=== PATIENT | female | born 1995 | race Caucasian/White ===

== ENCOUNTER 2018-02-11 15:42 | Inpatient (IN) ==
[2018-02-11] MEDS ORDERED: Ringers Solution, Lactated 1,000 ML IVC SCH ×2 (16:15→21:26)
[2018-02-11] MEDS ORDERED: Oxytocin 20 units/ LR 1000 mL 20 UNIT/1,000 ML BAG IVC ONE (16:15)
[2018-02-11] MEDS ORDERED: CeFAZolin Premix DUPLEX 2,000 MG/50 ML BAG IVPB ONE (16:15)
[2018-02-11] MEDS ORDERED: Oxytocin 20 units/ LR 1000 mL 20 UNIT/1,000 ML BAG IVC SCH ×3 (16:15→21:26)
[2018-02-11] MEDS ORDERED: Famotidine 20 MG/2 ML VIAL IVP ONE (16:15)
[2018-02-11] MEDS ORDERED: Metoclopramide 10 MG/2 ML VIAL IVP ONE (16:15)
--- NOTE | 2018-02-11 16:36 | OB/GYN History & Physical ---
Date of Encounter: 02/11/18 Time of Encounter: 16:32 Assessment and Plan (1) and not yet delivered in third trimester Current visit: Yes Status: Acute (2) 37 weeks gestation of Current visit: Yes Status: Acute (3) Intrauterine growth restriction (IUGR) affecting care of mother, third trimester, single gestation Current visit: Yes Status: Acute (4) Ladarius breech presentation Current visit: Yes Status: Acute will prep for primary section Qualifiers: Fetus number: single or unspecified fetus Qualified Code(s): O32.1XX0 - Maternal care for breech presentation, not applicable or unspecified (5) Active labor at term Current visit: Yes Status: Acute History of Present Illness HPI: Ms. Taylor is a 22 year old female 2 para 1 at 37-0/7 weeks by last menstrual period equal to an 8-5/7 week ultrasound who was sent over from the office for primary section. Patient's had an ultrasound last week which placed the baby at the 4.7 percentile for growth and Dopplers were 95th percentile. Her biophysical profile was 8 out of 8 we did a NST at the end of last week which was reactive. She presented today for a biophysical biophysical was 8 out of 8 Dopplers was still 95th percentile and BETHANY was still stable at 17 cm. Patient states that she has been having contractions all night and we examined the patient was 4 cm 90% -2 with bulging membranes and she is ladarius breech. Because of her situation advanced cervical dilatation and labor she was sent to labor and delivery for evaluation and section. Patient was 1-2 cm one week ago. She states that she had a little bit of leaking last night but has not had anything today and fluid was normal on ultrasound. Patient is GBS negative, rubella positive, Varicella positive, O+ Past Med Surg Social Fam HX - Past Medical History Source: patient, old records reviewed Medical history: no medical history Psychiatric history: no psych history - Past Surgical History Surgical History: no surgical history - Social History Smoking Status: Current every day smoker Smokeless Tobacco Status: No Alcohol use: none Drug use: none Occupational status: unemployed Current living situation: Home - Independent Activity Level: Independent ambulation Recent Out of Country Travel Within the Last 8 Weeks: No Exposure or Possible Exposure to Illness During Travel: No - Additional Family History Additional family history: Family history noncontributory Obstetrical History - Pregnancies : 2 Para: 1 Livin Medications and Allergies Ciprofloxacin HCl [Cipro] 500 mg PO BID #20 tablet 09/03/15 [Rx] Ibuprofen [Motrin] 800 mg PO Q8HR #30 tablet 09/03/15 [Rx] Ondansetron HCl [Zofran] 4 mg PO 2-3XD PRN #14 tablet 09/03/15 [Rx] OxyCODONE/APAP 5/325 [Percocet 5/325 MG] 1 each PO Q4HR PRN #15 tablet 09/03/15 [Rx] Tamsulosin [Flomax] 0.4 mg PO DAILY #7 capsule 09/03/15 [Rx] Vitamin D 09/03/15 [History] Allergy/AdvReac Type Severity Reaction Status Date / Time doxycycline Allergy Vomiting Verified 09/03/15 10:00 Review of System OB All systems PM: reviewed and no additional remarkable complaints except as stated - Menstruation Menstruation: other (contractions every 3-5 min) Exam - Constitutional Constitutional: well developed, well nourished, mild distress - HEENT HEENT: EOMI, PERRL, Mucus Membranes Moist - Neck Neck exam: full ROM - Lungs Respiratory exam: CTAB - Cardiovascular Cardiovascular exam: JVD, RRR - Abdomen Abdomen: Present: bowel sounds normal, gravid (Heart tones 140s reactive occasional contractions noted), bowel sounds hyperactive - Vagina Vagina: Present: normal moisture - Cervix Dilation: 4 Effacement: 90 Station: -2 (buldging membranes) Results All other labs normal.
--- NOTE | 2018-02-11 17:06 | Anesthesia Evaluation PreOp ---
Date of Encounter: 02/11/18 Time of Encounter: 17:00 - Past History Planned Operation: Cardiac History: Denies any Significant Hx Pulmonary History: Smoker CELLOPHANE WRAPPING EXAMINER History: Denies Any Significant HX Other Medical History: Denies Any Significant HX Anesthesia History: No Prior Anesthetic Complications : Yes (37 weeks ) Alcohol Use: none Drug use: none Medications and Allergies Ciprofloxacin HCl [Cipro] 500 mg PO BID #20 tablet 09/03/15 [Rx] Ibuprofen [Motrin] 800 mg PO Q8HR #30 tablet 09/03/15 [Rx] Ondansetron HCl [Zofran] 4 mg PO 2-3XD PRN #14 tablet 09/03/15 [Rx] OxyCODONE/APAP 5/325 [Percocet 5/325 MG] 1 each PO Q4HR PRN #15 tablet 09/03/15 [Rx] Tamsulosin [Flomax] 0.4 mg PO DAILY #7 capsule 09/03/15 [Rx] Vitamin D 09/03/15 [History] Allergy/AdvReac Type Severity Reaction Status Date / Time doxycycline Allergy Vomiting Verified 09/03/15 10:00 - Meds/Allergy Pre-op Review Medications Reviewed: Yes Allergies Reviewed: Yes Beta Blockers on Current Med List: No Anesthesia Results - Labs Laboratory Tests 08/09/16 12/11/17 12:39 12:18 Hgb 10.7 L Hct 32.0 L Plt Count 150 Sodium 138 Potassium 4.1 BUN 8 Creatinine 0.72 Anesthesia Exam O2 Sat Height 38.47 m Weight 57.2 kg Height: 5'5 Weight: 126 lbs NPO (# of Hours): 1000 Pain Scale: 0 - HEENT Pupil (Motor): Pupils equal, EOMI Mallampati: II Teeth: Normal Oral Opening: Greater than 3 - CELLOPHANE WRAPPING EXAMINER LOC: Oriented CELLOPHANE WRAPPING EXAMINER Motor: Normal RUE, Normal LUE, Normal RLE, Normal LLE, Normal Face CELLOPHANE WRAPPING EXAMINER Sensory: Normal: RUE, LUE, RLE, LLE, Face - Cardiac Rhythm: Regular Murmur: None JVD: No Carotid Bruit: No - Pulmonary Breath Sounds: bilateral Clear Respiratory Effort: Symmetrical Anesthesia Assess/Plan ASA Score: 2 Level of consciousness: Cooperative Anesthetic Plan: Spinal Autologous Blood: No Monitoring Plan: Standard Monitors Recovery Plan: PACU (Discussed SAB, possible GA, agrees to proceed)
[2018-02-11] MEDS ORDERED: *HR* Morphine Sulfate/PF 10 MG/10 ML AMPUL ONE (17:07)
[2018-02-11] MEDS ORDERED: *HR* FentaNYL (PF) 100 MCG/2 ML VIAL ONE (17:07)
[2018-02-11] MEDS ORDERED: Lidocaine -MPF 2% 5 ML VIAL ONE (17:07)
[2018-02-11] MEDS ORDERED: *HR* Oxytocin 10 UNIT/ML VIAL IM ONE (17:12)
[2018-02-11 17:14] LABS: Basophils # 0.1 K/mcL (0.0-0.2); Basophils % 0.4 %; Eosinophils # 0.2 K/mcL (0.0-0.6); Eosinophils % 1.3 %; Hematocrit 34.3 % (35.3-44.9); Hemoglobin 11.6 g/dL (11.5-15.4); Immature Granulocytes % 1.7 % (0-4); Lymphocytes # 2.4 K/mcL (0.6-4.6); Mean Corpuscular HGB Conc 33.8 g/dL (31.6-35.5); Mean Corpuscular Hemoglobin 30.5 pg (28.0-33.3); Mean Corpuscular Volume 90.3 fL (83.0-100.0); Mean Platelet Volume 10.6 fL (9.4-12.4); Monocytes # 1.3 K/mcL (0.0-1.3); Monocytes % 8.2 %; Neutrophils # 11.6 K/mcL (1.6-8.9); Platelet Count 148 K/mcL (140-400); Red Cell Distribution Width 13.5 % (11.5-14.5); Segmented Neutrophils % 73.4 %
[2018-02-11] MEDS ORDERED: Bupivacaine/PF 0.75% in Dex 2 ML AMPUL INFILT ONE (17:15)
[2018-02-11] MEDS ORDERED: Ringers Solution, Lactated 1,000 ML ONE (17:15)
[2018-02-11 17:30] LABS: Amphetamine Screen,Urine Negative ng/mL (Cutoff=1000); Barbiturate Screen,Urine Negative ng/mL (Cutoff=200); Benzodiazepines Screen,Urine Negative ng/mL (Cutoff=200); Cannabinoid Screen,Urine Negative ng/mL (Cutoff = 50); Cocaine Screen,Urine Negative ng/mL (Cutoff= 300); Opiate Screen,Urine Negative ng/mL (Cutoff=300); Phencyclidine Screen,Urine Negative ng/mL (Cutoff=25)
--- NOTE | 2018-02-11 18:25 | Anesthesia Procedures ---
Date of Encounter: 02/11/18 Time of Encounter: 18:03 Procedures: Anesthesia - Epidural/Spinal Patient ID/Chart reviewed: Yes Patient examined: Yes OB Eval: Gestational age: 36 weeks 5 days OB Eval: : 2 OB Eval: Hx Para: 1 OB Eval: Contractions: Non-stressed pattern Consent Obtained: Yes Supplemental Oxygen: None/Room Air Site Prep: Aseptic Technique, Sterile prep and drape, Povidone-Iodine 1% Patient position: upright Local Anesthetic: Lidocaine 1% Amount of Local Anesthetic used: 3 Interspace Used: L3-L4 Loss of Resistance (LEANNE): No Blood: No CSF: Yes Paresthesia: No Spinal Needle Gauge: 25 (3.5" pencan needle) Spinal Dose: see anesthesia record Procedure: successful on 1st attempt; patient tolerated procedure well; VSS Vitals + FHT's: see anesthesia record
[2018-02-11] MEDS ORDERED: *HR* Promethazine 25 MG/ML VIAL IVP PRN (18:27)
[2018-02-11] MEDS ORDERED: Naloxone 0.4 MG/ML INJ IVP PRN ×2 (18:27→21:26)
[2018-02-11] MEDS ORDERED: Ondansetron 4 MG/2 ML VIAL IVP PRN ×2 (18:27→21:26)
[2018-02-11] MEDS ORDERED: Acetaminophen IV 1,000 MG/100 ML INFUS..BTL IVPB ONE (18:27)
--- NOTE | 2018-02-11 19:13 | OB/GYN Procedure Note ---
Section - Date of procedure: 02/11/18 Preop diagnosis: other ( at 37-0/7 weeks, bob breech presentation, intrauterine growth restriction, active labor) Post-op diagnosis: same Procedure: primary low transverse Surgeon: Parish Almanzar Quantitated Blood Loss: 400 Was there an metal moulder's assistant present: Yes Lead Project Engineer: Keiry Paz ([email or web address]) Anesthesiologist: Neo Evans Registered Nurse Teacher: Jose Savage Anesthesia Type: Spinal section complications: none Disposition: L&D Recovery Room Specimens: Placenta - (s) A Delivery Date: 02/11/18 Delivery Time: 19:14 Presentation: bob breech Route of delivery: other ( section) Gender: Female Viability: Viable Pounds: 5 Ounces: 5 Gram Weight: 2.41 kg at 1 minute: 9 at 5 minutes: 9 Shoulder Dystocia: not encountered Specimens collected: cord blood Placenta: spontaneous Cord: nuchal cord, 3 umbilical vessels - Narrative Narrative: Patient is a 22-year-old 2 para 1 at 37 0 since weeks who was sent from the office secondary to active labor and breech presentation. Patient was seen in the office with ultrasound due to IUGR patient had an ultrasound last week which placed the baby at the 4.7 percentile for growth and Dopplers were normal. Been doing NSTs wanted to repeat his scan today patient's ultrasound today shows normal Dopplers and biophysical 8 out of 8 however patient states been francesco all night and she was examined she was a good 4 cm 80% -2 bulging membranes patient is bob breech. Patient was 1 cm last week due to cervical change and francesco every 2 minutes she was sent to labor and delivery for primary section for malpresentation. Procedure: Patient was taken the operating room where spinal anesthesia was found be adequate. She was in the dorsal supine position with leftward tilt prepped and draped in usual fashion. Timeout was then obtained. A Pfannenstiel incision was made with a scalpel and carried out the underlying tissue to the fascia was identified. Fascia was nicked in midline and extended laterally with the Keating scissors. The superior and inferior edges of the fascia grasped tented up and dissected off the rectus muscles. Rectus muscles were in the midline parietal peritoneum was identified and entered sharply. This was ext ended superiorly and inferiorly with Metzenbaum scissors. Bladder blade was inserted the vesicouterine peritoneum was identified tented up and entered sharply. Bladder blade was inserted the vesicouterine peritoneum was identified tented up and entered sharply. This was extended laterally bladder flap created digitally. The lower uterine segment was incised with a scalpel and extended laterally with digital manipulation. Membranes were ruptured clear fluid noted and the was then delivered in a bob breech presentation on scissors across the chest and the head was delivered through was a nuchal cord 1 loose and reduced. Cord was clamped and cut was bulb suctioned and handed off to waiting pediatric team. Cord blood was collected and placenta was then delivered spontaneously with a three-vessel cord. Uterus was exteriorized cleared of all clots and debris. The lower uterine segment was closed using 0 Vicryl in a running locking stitch paratubular closure. Good hemostasis was noted os to normal. Uterus was returned to the abdomen and gutters were cleansed of all clots and debris then copiously irrigated. No active bleeding at this time. The fascia was then closed using a #1 stratafix in a running stitch and then the skin was closed using a 4-0 Vicryl in subcuticular manner. All needles lap Sponge Counts Were Correct 3 She Did Receive Preoperative Ant ibiotics She Will Be Observed 2 Hours before Being Taken Floor.
--- NOTE | 2018-02-11 19:14 | Anesthesia Evaluation Post Op ---
Date of Encounter: 02/11/18 Time of Encounter: 19:12 - Vital Signs Vital Signs: 98/56, HR 64, RR 16, SpO2 100%, T97.7F - Lungs Lungs: Clear Ascult./Percussion - Airway Airway: Non-obstructed - Cardiovascular Regular Rate - Mental Status Mental Status: Alert & Oriented, Answers Appropriately - Pain Pain Scale: 0 Pain Scale used: Numeric (1 - 10) - Nausea Vomiting Nausea Vomiting: Not Present - Hydration Hydration: NPO, Pineda catheter - Discharge PostOp Status: Transfer Patient to floor
[2018-02-11] MEDS ORDERED: Simethicone 80 MG TAB.CHEW PO PRN (21:26)
[2018-02-11] MEDS ORDERED: Metoclopramide 10 MG/2 ML VIAL IVP PRN (21:26)
[2018-02-11] MEDS ORDERED: *HR* HYDROmorphone (PF) 1 MG/ML SYRINGE IVP PRN (21:26)
[2018-02-11] MEDS ORDERED: Sennosides 8.6 MG TABLET PO PRN (21:26)
[2018-02-11] MEDS ORDERED: Azithromycin 250 MG TABLET PO SCH (21:26)
[2018-02-11] MEDS: Ibuprofen 600 MG TABLET PO PRN (23:10)
[2018-02-12] MEDS: *HR* OxyCODONE/APAP 5/325 TABLET PO PRN ×3 (05:36→21:25)
[2018-02-12 07:00] LABS: Basophils # 0.1 K/mcL (0.0-0.2); Basophils % 0.4 %; Eosinophils # 0.2 K/mcL (0.0-0.6); Eosinophils % 1.2 %; Hematocrit 31.6 % (35.3-44.9); Hemoglobin 10.5 g/dL (11.5-15.4); Lymphocytes # 3.3 K/mcL (0.6-4.6); Lymphocytes % 18.5 %; Mean Corpuscular HGB Conc 33.2 g/dL (31.6-35.5); Mean Corpuscular Hemoglobin 29.6 pg (28.0-33.3); Mean Platelet Volume 10.5 fL (9.4-12.4); Monocytes # 1.6 K/mcL (0.0-1.3); Monocytes % 9.2 %; Neutrophils # 12.3 K/mcL (1.6-8.9); Platelet Count 124 K/mcL (140-400); Red Blood Count 3.55 M/mcL (3.82-4.97); Red Cell Distribution Width 13.2 % (11.5-14.5); Segmented Neutrophils % 69.7 %
[2018-02-12] MEDS: Prenatal Vit/FA 1 EACH TABLET PO SCH (07:18)
[2018-02-12] MEDS: Ibuprofen 600 MG TABLET PO PRN ×3 (07:18→21:24)
--- NOTE | 2018-02-12 11:26 | OB/GYN Progress Note ---
Date of Encounter: 02/12/18 Time of Encounter: 11:25 - Assessment and Plan (1) Status post delivery Current Visit: Yes Status: Acute Patient doing well status post section day 1. Tolerating regular diet, voiding without difficulty. Passing flatus, pain well-controlled with scheduled medications. (2) Breast feeding status of mother Current Visit: Yes Status: Acute support as necessary Patient states she has a breast pump at home (3) anemia Current Visit: Yes Status: Acute Continue iron daily. Subjective - Subjective Principal diagnosis: Status post repeat section Patient reports: appetite normal, voiding normally, pain well controlled, ambulating normally : doing well, nursing well Objective - Vital Signs Latest vital signs: Vital Signs Temp Pulse Resp BP Pulse Ox 02/12/18 10:23 16 02/12/18 07:40 97.8 F 77 16 107/73 02/12/18 04:50 98.3 F 82 14 108/66 99 02/12/18 01:26 98.4 F 69 14 119/75 98 02/12/18 00:30 98.4 F 69 14 119/75 98 02/11/18 23:00 97.8 F 86 16 122/86 96 02/11/18 22:19 97.4 F L 68 14 123/80 98 02/11/18 21:45 98.0 F 60 16 114/68 99 02/11/18 21:10 97.9 F 57 16 117/80 100 Intake and Output 02/11/18 02/12/18 02/12/18 23:59 07:59 15:59 Intake Total 500 / 500 Output Total 575 / 575 450 / 450 Balance -575 / -575 50 / 50 Intake: Oral 500 / 500 Output: Catheter 575 / 575 450 / 450 Other: Weight 58.8 kg 55.6 kg Patient Weight 02/12/18 23:59 Weight 55.6 kg - Exam Lungs: bilateral: normal Chest: Normal S1, Normal S2 Extremities: Present: normal Abdomen: Present: normal appearance, soft Incision: Present: normal, intact Uterus: Present: normal, firm - Labs Labs: Laboratory Results - last 24 hr 02/11/18 02/11/18 02/11/18 16:15 16:30 16:46 WBC 15.8 H RBC 3.80 L Hgb 11.6 Hct 34.3 L MCV 90.3 MCH 30.5 MCHC 33.8 RDW 13.5 Plt Count 148 MPV 10.6 Immature Gran % 1.7 Seg Neutrophils % 73.4 Lymphocytes % 15.0 Monocytes % 8.2 Eosinophils % 1.3 Basophils % 0.4 Neutrophils # 11.6 H Lymphocytes # 2.4 Monocytes # 1.3 Eosinophils # 0.2 Basophils # 0.1 Urine Opiates Screen Negative Ur Barbiturates Screen Negative Ur Phencyclidine Scrn Negative Ur Amphetamines Screen Negative U Benzodiazepines Scrn Negative Urine Cocaine Screen Negative U Marijuana (THC) Screen Negative Ur Drug Screen Interp See Below Hep Bs Antigen Nonreactive 02/12/18 06:27 WBC 17.6 H RBC 3.55 L Hgb 10.5 L Hct 31.6 L MCV 89.0 MCH 29.6 MCHC 33.2 RDW 13.2 Plt Count 124 L MPV 10.5 Immature Gran % 1.0 Seg Neutrophils % 69.7 Lymphocytes % 18.5 Monocytes % 9.2 Eosinophils % 1.2 Basophils % 0.4 Neutrophils # 12.3 H Lymphocytes # 3.3 Monocytes # 1.6 H Eosinophils # 0.2 Basophils # 0.1 Urine Opiates Screen Ur Barbiturates Screen Ur Phencyclidine Scrn Ur Amphetamines Screen U Benzodiazepines Scrn Urine Cocaine Screen U Marijuana (THC) Screen Ur Drug Screen Interp Hep Bs Antigen
[2018-02-13] MEDS: Prenatal Vit/FA 1 EACH TABLET PO SCH (07:49)
[2018-02-13] MEDS: Ibuprofen 600 MG TABLET PO PRN (07:49)
[2018-02-13] MEDS: *HR* OxyCODONE/APAP 5/325 TABLET PO PRN (07:49)
[2018-02-13 08:54] VITALS: BP 115/77
--- NOTE | 2018-02-13 09:18 | Discharge Summary ---
Date of Encounter: 02/13/18 Time of Encounter: 09:13 - Discharge Diagnosis (1) Breast feeding status of mother Priority: Secondary Status: Acute (2) Status post delivery Priority: Primary Status: Acute Comments: Pt meeting all post-op milestones. She states the pain medication makes her really tired. She desires to try Vicodin instead. Will try a dose here before discharge home. Pt desires discharge home today. She desires depo provera for contraception prior to discharge. - Discharge Medications Prescriptions: Ibuprofen [Motrin] 600 mg PO Q6HR PRN #60 tablet PRN Reason: Cramping Azithromycin [Zithromax] 500 mg PO Q24H #5 tablet Docusate [Colace] 100 mg PO BID #60 capsule HYDROcodone/Acet 5/325 mg [[place] 5-325 mg] 1 tab PO Q6H PRN 7 Days #28 tab PRN Reason: Severe Pain Home Medications: Azithromycin [Zithromax] 500 mg PO Q24H #5 tablet 02/13/18 [Rx] Docusate [Colace] 100 mg PO BID #60 capsule 02/13/18 [Rx] HYDROcodone/Acet 5/325 mg [[place] 5-325 mg] 1 tab PO Q6H PRN 7 Days #28 tab 02/13/18 [Rx] Ibuprofen [Motrin] 600 mg PO Q6HR PRN #60 tablet 02/13/18 [Rx] Vit/FA 1 each PO DAILY tablet 02/13/18 [Rx] Simethicone [Gas-X] 80 mg PO TID PRN tab.chew 02/13/18 [Rx] Allergies/Adverse Reactions: Allergy/AdvReac Type Severity Reaction Status Date / Time doxycycline Allergy Vomiting Verified 09/03/15 10:00 Data Procedures and tests throughout hospitalization: Laboratory Tests 02/11/18 02/11/18 02/11/18 16:15 16:30 16:46 WBC 15.8 H RBC 3.80 L Hgb 11.6 Hct 34.3 L MCV 90.3 MCH 30.5 MCHC 33.8 RDW 13.5 Plt Count 148 MPV 10.6 Immature Gran % 1.7 Seg Neutrophils % 73.4 Lymphocytes % 15.0 Monocytes % 8.2 Eosinophils % 1.3 Basophils % 0.4 Neutrophils # 11.6 H Lymphocytes # 2.4 Monocytes # 1.3 Eosinophils # 0.2 Basophils # 0.1 Urine Opiates Screen Negative Ur Barbiturates Screen Negative Ur Phencyclidine Scrn Negative Ur Amphetamines Screen Negative U Benzodiazepines Scrn Negative Urine Cocaine Screen Negative U Marijuana (THC) Screen Negative Ur Drug Screen Interp See Below Hep Bs Antigen Nonreactive 02/12/18 06:27 WBC 17.6 H RBC 3.55 L Hgb 10.5 L Hct 31.6 L MCV 89.0 MCH 29.6 MCHC 33.2 RDW 13.2 Plt Count 124 L MPV 10.5 Immature Gran % 1.0 Seg Neutrophils % 69.7 Lymphocytes % 18.5 Monocytes % 9.2 Eosinophils % 1.2 Basophils % 0.4 Neutrophils # 12.3 H Lymphocytes # 3.3 Monocytes # 1.6 H Eosinophils # 0.2 Basophils # 0.1 Urine Opiates Screen Ur Barbiturates Screen Ur Phencyclidine Scrn Ur Amphetamines Screen U Benzodiazepines Scrn Urine Cocaine Screen U Marijuana (THC) Screen Ur Drug Screen Interp Hep Bs Antigen Date of admission: 02/11/18 15:42 Primary care physician: Evan Lazcano MD Discharging clinician: Kia Ferguson Anticipated date of discharge: 02/13/18 - Patient Status Disposition: Home, Self-Care Condition: Good Functional capacity at discharge: independent ambulation Overall status at discharge: patient is progressing back to baseline - Discharge Instructions Follow Up With: Evan Lazcano MD [Primary Care Provider] - Parish Almanzar DO [Partnered Physician] - - Diet and Activity Activity: increase activity as tolerated Diet: regular diet Hospital Course Reason for admission: active labor Delivery: breech extraction, section Episiotomy: none Laceration: none Other procedures: none complications: none Discharge diagnosis: IUP at term delivered [place] baby: female Hospital course: - Date of procedure: 02/11/18 Preop diagnosis: other ( at 37-0/7 weeks, bob breech presentation, intrauterine growth restriction, active labor) Post-op diagnosis: same Procedure: primary low transverse Surgeon: Parish Almanzar Quantitated Blood Loss: 400 Was there an community relations assistant present: Yes Cigar Packer And Picker: Keiry Paz ([email or web address]) Anesthesiologist: Neo Evans Field Artillery Fire Control Man: Jose Savage Anesthesia Type: Spinal section complications: none Disposition: L&D Recovery Room Specimens: Placenta - Infant (s) Infant A Infant Delivery Date: 02/11/18 Delivery Time: 19:14 Presentation: bob breech Route of delivery: other ( section) Gender: Female Viability: Viable Pounds: 5 Ounces: 5 Gram Weight: 2.41 kg at 1 minute: 9 at 5 minutes: 9 Shoulder Dystocia: not encountered Specimens collected: cord blood Placenta: spontaneous Cord: nuchal cord, 3 umbilical vessels Time Attestation: Total time spent providing and/or coordinating discharge services: Time Spent: Less than 30 minutes - VTE Documentation of Mechanical Device: Intermittent pneumatic compression device Exam - Constitutional Vitals: Temp Pulse Resp BP Pulse Ox 98.1 F 82 16 115/77 98 02/13/18 08:53 02/13/18 08:53 02/13/18 08:53 02/13/18 08:53 02/12/18 21:05 General appearance IM: A&O X 3 - Respiratory Respiratory exam: Present: CTAB - Cardiovascular Cardiovascular exam IM: Present: RRR - GI/Abdominal GI/Abdominal exam IM: soft Incision: intact (dermabond in place, no s/sx infection) - Uterine Tone: Firm Uterus Position: 3 Fingers Below Umbilicus - Extremities Exam Extremities exam IM: Present: normal inspection - Neurological Exam Neurological exam: normal gait, oriented X3 - Psychiatric Additional comments: reports tired but otherwise good mood
[2018-02-13] MEDS ORDERED: *HR* HYDROcodone/Acet 5/325 mg TABLET PO PRN (09:23)
== END 2018-02-13 13:09 | disposition home or self-care (01) | DRG 540 ==
LOC: 1NENULAB → OBSVTOIN 15:42 → 1NENUOBS 21:06
PROVIDERS: ADMIT Obstetrics & Gynecology; ATTEND Obstetrics & Gynecology